=== PATIENT | female | born 1960 | race Caucasian/White ===

== ENCOUNTER 2018-03-11 16:58 | Emergency (ER) | payer OTHER ==
[2018-03-11 17:31] VITALS: BP 151/90
--- NOTE | 2018-03-11 17:44 | UC ---
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 she had some numbness into R thigh on sunday which has since resolved. self tx once with 800mg IB this am. - History of Current Complaint Chief Complaint: UCBackPain Stated Complaint: W/C BACK COMPLAINT Time Seen by Provider: 03/11/18 17:36 Hx Obtained From: Patient Hx Last Menstrual Period: 04/12/13 Onset/Duration: Sudden Onset Timing: Constant Pain Intensity: 8 Aggravating Factor(s): Movement Associated Signs And Symptoms: Negative: Fever, Weakness, Tingling, Abdominal Pain, Flank Pain, Bladder Incontinence, Bowel Incontinence - Allergies/Home Medications Allergies/Adverse Reactions: Allergies Allergy/AdvReac Type Severity Reaction Status Date / Time No Known Allergies Allergy Verified 03/11/18 17:31 PMH/Surg Hx/FS Hx/Imm Hx Previously Healthy: Yes - Surgical History Surgical History: Yes Surgery Procedure, Year, and Place: hysterectomy - Family History Known Family History: Positive: Non-Contributory - Social History Occupation: Employed Full-time Alcohol Use: Occasionally Substance Use Type: None Smoking Status (MU): Light Every Day Tobacco Smoker Type: Cigarettes Amount Used/How Often: 1 per week Length of Time of Smoking/Using Tobacco: since age 16 Have You Smoked in the Last Year: Yes - Immunization History Most Recent Influenza Vaccination: not this season Review of Systems All Other Systems Reviewed And Are Negative: Yes Constitutional: Positive: Negative Skin: Positive: Negative Eyes: Positive: Negative ENT: Positive: Negative Respiratory: Positive: Negative Cardiovascular: Positive: Negative Gastrointestinal: Positive: Negative Genitourinary: Positive: Negative Motor: Positive: Negative Neurovascular: Positive: Negative Neurological: Negative: Weakness Psychological: Positive: Negative Is Patient Immunocompromised?: No Physical Exam Triage Information Reviewed: Yes Appearance: Well-Appearing Vital Signs: Initial Vital Signs Temp 97.9 F 03/11/18 17:21 Pulse 84 03/11/18 17:21 Resp 16 03/11/18 17:21 BP 151/90 03/11/18 17:21 Pulse Ox 100 03/11/18 17:21 Vital Signs Reviewed: Yes Eyes: Positive: Conjunctiva Clear ENT: Positive: Normal ENT inspection Neck: Positive: Supple, Nontender, No Lymphadenopathy, Other: - c-spine is non tender Respiratory: Positive: Lungs clear, Normal breath sounds Cardiovascular: Positive: RRR, No Murmur Abdomen Description: Positive: Nontender, No Organomegaly, Soft. Negative: Distended, Guarding, Pulsatile Mass Bowel Sounds: Positive: Present Musculoskeletal: Positive: Other: - Back: flat lordotic curve in lumbar region. spine is non tender. tender over paraspinal mm R lower lumbar regions. No rash. active ROM is intact. 5/5 strength, 2+ reflexes and sensation intact x4. No saddle anesthesia. slow but steady gait. Neurological: Positive: Alert Psychological: Positive: Age Appropriate Behavior Skin Exam: Normal Back Pain Course/Dx - Differential Dx/Diagnosis Differential Diagnosis/HQI/PQRI: Other - No concern for infection, acute abdomen /AAA, cauda equina or fx. Provider Diagnosis: Low back pain Discharge - Sign-Out/Discharge Documenting (check all that apply): Patient Departure All imaging exams completed and their final reports reviewed: No Studies - Discharge Plan Condition: Stable Disposition: HOME Prescriptions: Cyclobenzaprine TAB* [Flexeril 10 MG TAB*] 10 mg PO TID PRN #10 tab PRN Reason: Pain - Back Patient Education Materials: Acute Low Back Pain (ED) Referrals: Robinson Banks MD [Medical Doctor] - Additional Instructions: CALL DR BANKS IN AM TO BE SEEN THIS WEEK. YOU MAY CONTINUE THE MOTRIN NEEDED PER LABEL. DO NOT TAKE ANOTHER DOSE UNTIL AM BECAUSE YOUR WERE GIVEN TORADOL HERE. - Billing Disposition and Condition Condition: STABLE Disposition: Home
[2018-03-11] MEDS ORDERED: Ketorolac INJ* 60 MG/2 ML VIAL IM ONE (17:49)
[2018-03-11] MEDS ORDERED: Cyclobenzaprine TAB* 10 MG PO ONE (17:50)
== END 2018-03-11 18:19 | disposition home or self-care (01) ==
LOC: UCCORT 16:58
DX: M54.5 Low back pain (principal); F17.210 Nicotine dependence, cigarettes, uncomplicated
CPT/HCPCS: 96372; 99212; A9270-GY; G0463; J1885